=== PATIENT | male | born 1955 | race Caucasian/White ===

== ENCOUNTER 2017-03-24 18:04 | Emergency (ER) | payer OTHER ==
[2017-03-24 18:12] VITALS: BP 144/74; BMI 24.9
[2017-03-24 18:57] LABS: BILIRUBIN,URINE NEGATIVE (NEGATIVE); BLOOD/HEMOGLOBIN,URINE NEGATIVE (NEGATIVE); GLUCOSE, URINE NEGATIVE (NEGATIVE); KETONES,URINE NEGATIVE (NEGATIVE); LEUKOCYTE ESTERASE ,URINE NEGATIVE (NEGATIVE); NITRITES,URINE NEGATIVE (NEGATIVE); PROTEIN,URINE NEGATIVE (NEGATIVE); UROBILINOGEN,URINE NORMAL (NORMAL)
[2017-03-24 19:05] LABS: APPEARANCE,URINE CLEAR (CLEAR); BACTERIA,URINE NEGATIVE /HPF (NEGATIVE); COLOR,URINE PALE YELLOW (YELLOW); RBC,URINE 0-3 /HPF (NEGATIVE); SQUAMOUS EPITHELIAL CELL,UR RARE /HPF (NEGATIVE)
--- NOTE | 2017-03-24 19:19 | DR.UPM ---
HPI - Time Seen Time seen: 17:11 - PCP Primary Care Physician: nfd - Complaint Chief Complaint Doctors Comments: Patient admits to a history of kidney stones. Chief Complaint:: Patient states "I have been having problems urinating for the past three days. It hard to get started and it is very painful once I actually start urinating." Denies any hematuria - Source History Provided: Patient - Mode of Arrival Mode of Arrival: Ambulatory - Timing Onset of Chief Complaint: 03/20/17 PMH - PMH Past Medical History: Yes Past Medical History: Kidney Stones Past Surgical History: Yes Surgical History: Appendectomy Past Surgical History Comment: hip surgery x4, shoulder surgery, eye surgery - Family History History of Family Medical Conditions: Yes Family Medical History: Diabetes Mellitus, [place], Heart Failure, Hypertension - Social History Does patient currently use any type of tobacco product: Yes Have you used tobacco products in the last 12 months: Yes Type of Tobacco Use: Cigarettes How many years tobacco product used: 50 Does any household member use tobacco: No Alcohol Use: None Do you use any recreational Drugs:: No Lives With: Family Lives Where: Home - infectious screening In the last 2 months have you had wt loss of >10#?: NO Have you had fever, night sweats or hemotysis?: No Have you traveled outside the country in the last 6 months?: No Isolation: Standard ROS - Review of Systems Eyes: No Symptoms Reported ENTM: No Symptoms Reported Respiratoy: No Symptoms Reported Cardiovascular: No Symptoms Reported Gastrointestinal/Abdominal: No Symptoms Reported Genitourinary: No Symptoms Reported Neurological: No Symptoms Reported Musculoskeletal: No Symptoms Reported Integumentary: No Symptoms Reported Hematologic/Lymphatic: No Symptoms Reported Endocrine: No Symptoms Reported Psychiatric: No Symptoms Reported All Other Systems: Reviewed and Negative PE - Vital Signs Vitals: Pulse Rate 87 Respiratory Rate 18 Blood Pressure 144/74 O2 Sat by Pulse Oximetry 99 - General Limitations: No Limitations General Appearance: Alert, In No Apparent Distress - Head Head Exam: Normal Inspection, Atraumatic - Eyes Eye exam: Normal Appearance, PERRL, EOMI - ENT ENT Exam: Normal Exam - Neck Neck Exam: Normal Inspection, Full ROM - Chest Chest Inspection: Normal Inspection, Symmetric Chest Wall Rise - Respiratory Respiratory Exam: Normal Lung Sounds Bilat Respiratory Exam: Bilateral Clear to Auscultation - Cardiovascular Cardiovascular Exam: Regular Rate, Normal Rhythm - Abdominal Exam Abdominal Exam: Normal Inspection, Normal Bowel Sounds Abdominal Tenderness: negative: RUQ, RLQ, LUQ, LLQ, Epigastrium, Suprapubic, Diffuse, Mild, Moderate, Severe, Other - Rectal Rectal Exam: Deferred - Genitourinary Exam: Male: Normal Inspection Scrotal Exam: Normal: Bilateral - Extremities Extremities Exam: Normal Inspection, Full ROM - Back Back Exam: Normal Inspection - Neurologic Neurological Exam: Alert, Oriented X3, CN II-XII Intact - Psychiatric Psychiatric Exam: Normal Affect - Skin Skin Exam: Warm, Dry, Intact ROR - Labs Reviewed Result Diagrams: 03/24/17 19:52 03/24/17 19:52 Laboratory: WBC 9.4 X10^3/uL (3.6-10.0) 03/24/17 19:52 RBC 5.32 X10^6/uL (4.7-6.0) 03/24/17 19:52 Hgb 15.4 g/dL (13.5-18.0) 03/24/17 19:52 Hct 44.8 % (42.0-54.0) 03/24/17 19:52 MCV 84.3 fL (80.0-100.0) 03/24/17 19:52 MCH 28.9 pg (27.0-34.0) 03/24/17 19:52 MCHC 34.3 g/dL (33.0-35.0) 03/24/17 19:52 RDW 13.8 % (11.6-16.5) 03/24/17 19:52 Plt Count 250 X10^3/uL (150.0-450.0) 03/24/17 19:52 MPV 7.6 fL (7.4-11.0) 03/24/17 19:52 Neut % 61.1 % (42.0-75.0) 03/24/17 19:52 Lymph % 30.0 % (21.0-51.0) 03/24/17 19:52 Mathews % 6.1 % (0.0-13.0) 03/24/17 19:52 Eos % 1.7 % (0.9-2.9) 03/24/17 19:52 Baso % 1.1 % (0.2-1.0) H 03/24/17 19:52 Neut # 5.7 x10^3/uL (2.2-4.8) H 03/24/17 19:52 Lymph # 2.8 X10^3/uL (1.3-2.9) 03/24/17 19:52 Mathews # 0.6 x10^3/uL (0.3-0.8) 03/24/17 19:52 Eos # 0.2 x10^3/uL (0.0-0.2) 03/24/17 19:52 Baso # 0.1 X10^3/uL (0.0-0.1) 03/24/17 19:52 Absolute Nucleated RBC 0.0 /100WBC 03/24/17 19:52 Sodium 143 mmol/L (136-145) 03/24/17 19:52 Corrected Sodium TNP 03/24/17 19:52 Potassium 3.7 mmol/L (3.5-5.1) 03/24/17 19:52 Chloride 109 mmol/L (98-107) H 03/24/17 19:52 Carbon Dioxide 28.1 mmol/L (21-32) 03/24/17 19:52 BUN 8 mg/dL (7-18) 03/24/17 19:52 Creatinine 0.97 mg/dL (0.70-1.30) 03/24/17 19:52 Est GFR (MDRD) Af Amer > 60 (>60) 03/24/17 19:52 Est GFR (MDRD) Non-Af > 60 (>60) 03/24/17 19:52 Glucose 90 mg/dL (65-99) 03/24/17 19:52 Calcium 9.0 mg/dL (8.5-10.1) 03/24/17 19:52 Corrected Calcium TNP 03/24/17 19:52 Total Bilirubin 0.50 mg/dL (0.2-1.0) 03/24/17 19:52 AST 15 Units/L (15-37) 03/24/17 19:52 ALT 24 Units/L (12-78) 03/24/17 19:52 Alkaline Phosphatase 92 Units/L (46-116) 03/24/17 19:52 C-Reactive Protein 1.20 mg/L (0-3.0) 03/24/17 19:52 Total Protein 7.0 g/dL (6.4-8.2) 03/24/17 19:52 Albumin 3.6 g/dL (3.4-5.0) 03/24/17 19:52 Globulin 3.4 g/dL (2.5-4.5) 03/24/17 19:52 Albumin/Globulin Ratio 1.1 Ratio (1.1-2.1) 03/24/17 19:52 Specimen Type Random urine 03/24/17 18:45 Urine Color Pale yellow (YELLOW) 03/24/17 18:45 Urine Appearance Clear (CLEAR) 03/24/17 18:45 Urine pH 7.0 (5.0 - 8.0) 03/24/17 18:45 Ur Specific Pinole 1.010 (1.000-1.030) 03/24/17 18:45 Urine Protein Negative (NEGATIVE) 03/24/17 18:45 Urine Glucose (UA) Negative (NEGATIVE) 03/24/17 18:45 Urine Ketones Negative (NEGATIVE) 03/24/17 18:45 Urine Occult Blood Negative (NEGATIVE) 03/24/17 18:45 Urine Nitrite Negative (NEGATIVE) 03/24/17 18:45 Urine Bilirubin Negative (NEGATIVE) 03/24/17 18:45 Urine Urobilinogen Normal (NORMAL) 03/24/17 18:45 Ur Leukocyte Esterase Negative (NEGATIVE) 03/24/17 18:45 Urine RBC 0-3 /HPF (NEGATIVE) 03/24/17 18:45 Urine WBC 0-3 /HPF (NEGATIVE) 03/24/17 18:45 Ur Squamous Epith Cells Rare /HPF (NEGATIVE) 03/24/17 18:45 Urine Bacteria Negative /HPF (NEGATIVE) 03/24/17 18:45 Ur Culture Indicated? No/not indicated 03/24/17 18:45 - XRAY XRAY Interpreted by: Radiologist (CT Abd/Pel: There is grade 1 anterolisthesis of L5 on S1. The vascular structures are within normal limits for age. No pathologically enlarged lymph nodes are identified. There is evidence of removed hardware in the right hip. There is diffuse thickening of the urinary bladder wall. Prostate is mildly enlarged.) - Diagnosis Discharge Problem: Prostate hypertrophy, chronic bladder outlet obstruction - Discharge Plan Condition: Stable - Follow ups/Referrals Follow ups/Referrals: NFD,None [Primary Care Provider] - 3 days - Instructions
[2017-03-24 20:12] LABS: BASOPHILS # (AUTO) 0.1 X10^3/uL (0.0-0.1); BASOPHILS % (AUTO) 1.1 % (0.2-1.0); EOSINOPHILS # (AUTO) 0.2 x10^3/uL (0.0-0.2); EOSINOPHILS % (AUTO) 1.7 % (0.9-2.9); HEMATOCRIT 44.8 % (42.0-54.0); HEMOGLOBIN 15.4 g/dL (13.5-18.0); LYMPHOCYTES # (AUTO) 2.8 X10^3/uL (1.3-2.9); MEAN CORPUSCULAR HEMOGLOBIN 28.9 pg (27.0-34.0); MEAN CORPUSCULAR HGB CONC 34.3 g/dL (33.0-35.0); MEAN CORPUSCULAR VOLUME 84.3 fL (80.0-100.0); MEAN PLATELET VOLUME 7.6 fL (7.4-11.0); MONOCYTES # (AUTO) 0.6 x10^3/uL (0.3-0.8); MONOCYTES % (AUTO) 6.1 % (0.0-13.0); NEUTROPHILS # (AUTO) 5.7 x10^3/uL (2.2-4.8); NEUTROPHILS % (AUTO) 61.1 % (42.0-75.0); PLATELET COUNT 250 X10^3/uL (150.0-450.0); RED BLOOD COUNT 5.32 X10^6/uL (4.7-6.0); RED CELL DISTRIBUTION WIDTH 13.8 % (11.6-16.5); WHITE BLOOD COUNT 9.4 X10^3/uL (3.6-10.0)
[2017-03-24 20:14] LABS: ALANINE AMINOTRANSFERASE 24 Units/L (12-78); ALBUMIN 3.6 g/dL (3.4-5.0); ALKALINE PHOSPHATASE 92 Units/L (46-116); ASPARTATE AMINO TRANSFERASE 15 Units/L (15-37); BLOOD UREA NITROGEN 8 mg/dL (7-18); CARBON DIOXIDE 28.1 mmol/L (21-32); CHLORIDE 109 mmol/L (98-107); CREATININE 0.97 mg/dL (0.70-1.30); SODIUM 143 mmol/L (136-145); eGFR BLACK RACES > 60 (>60); eGFR NON BLACK RACES > 60 (>60)
[2017-03-24] MEDS ORDERED: DEMEROL INJ IVP ONE (20:56)
[2017-03-24] MEDS ORDERED: PHENERGAN INJ 25 MG IV ONE (20:56)
[2017-03-24] MEDS ORDERED: NS 100 ML IV 100 ML IV ONE (21:03)
[2017-03-24] MEDS ORDERED: PHENERGAN INJ 25 MG ONE (21:11)
[2017-03-24] MEDS ORDERED: DEMEROL INJ ONE (21:12)
--- NOTE | 2017-03-24 22:04 | CT ---
HISTORY: Weakness, generalized pain Study: CT abdomen and pelvis with contrast Comparison: none Technique: Multiple axial images of the abdomen and pelvis were obtained with IV contrast. Oral contrast was no t administered. Dose reduction techniques including Automated Exposure Control (AEC) and adjustment o f mA and kV were utilized. Findings: The visualized portions of the lung bases are unremarkable. The liver, spleen, pancreas, kidneys, an d adrenal glands are unremarkable in their CT appearance. The gallbladder is normal. There is early e xcretion of contrast limiting evaluation renal calculi. No free intraperitoneal air. No evidence of intestinal obstruction or inflammation. The appendix is n ot visualized. No free fluid is seen. There is diffuse thickening of the urinary bladder wall. Prosta te is mildly enlarged. There is grade 1 anterolisthesis of L5 on S1. The vascular structures are within normal limits for ag e. No pathologically enlarged lymph nodes are identified. There is evidence of removed hardware in th e right hip. IMPRESSION: 1. Diffuse thickened urinary bladder wall. The prostate is mildly enlarged. The findings could be rel ated to chronic bladder outlet obstruction versus cystitis, correlate clinically. Reported By:
== END 2017-03-24 22:25 | disposition home or self-care (01) ==
LOC: ER 18:36
DX: N40.0 Benign prostatic hyperplasia without lower urinary tract symptoms (principal); N32.0 Bladder-neck obstruction
CPT/HCPCS: 36415; 74177; 80053; 81001; 85025; 86140; 96365; 96374; 96375; 99283; A4222; J2175; J2550

== ENCOUNTER → 2017-04-19 | Outpatient (CLI) | payer OTHER ==
[2017-03-24 18:12] VITALS: BP 144/74
--- NOTE | 2017-04-20 13:18 | MRI ---
STUDY: MRI OF THE CERVICAL SPINE HISTORY: Cervical disc degeneration. Comparison: None. Technique: An MRI of the cervical spine including sagittal T1, T2, and T2 STIR, axial T1, and T2 FSE images was performed using standard departmental protocol. Findings: Sagittal images: Visualized portions of the posterior fossa are within normal limits. The craniocervical junction is unremarkable. Vertebral body heights and alignment are within normal limits. Marrow signal is somewha t heterogeneous. There are Modic type 2 changes in the posterior aspect of the opposing endplates of C3 and C4. Additional Modic type 2 changes noted in C5, C6, and C7. There is focal fat in C2 on the l eft. There is multilevel degenerative disc disease. There is no significant prevertebral soft tissue swell ing. The surrounding paraspinal soft tissues are unremarkable. There is no evidence of cord compress ion. No intrinsic signal abnormalities are identified in the spinal cord itself. Axial images: C2 -- C3: Normal. C3 -- C4: There is posterior disc osteophyte complex and bilateral uncovertebral osteophyte formation . The combination of these findings results in mild central canal stenosis. There is mild left neural foraminal stenosis. The right neural foramen is adequate. C4 -- C5: There is a posterior disc osteophyte complex and bilateral uncovertebral osteophyte formati on. This results in mild central canal stenosis. The neural foramina are adequate. C5 -- C6: There is a posterior disc osteophyte complex and bilateral uncovertebral osteophyte formati on. This results in moderate central canal stenosis. The neural foramina are adequate. C6 -- C7: There is a posterior disc osteophyte complex and bilateral uncovertebral osteophyte formati on. This results in mild central canal stenosis. The neural foramina are adequate. C7 -- T1: Normal. IMPRESSION: 1. Multilevel cervical spondylosis as described, probably most prominent at C5/6. 2. Moderate spinal stenosis at C5/6. 3. Mild spinal stenosis at C3/4, C4/5 and C6/7. Reported By:
== END | disposition home or self-care (01) | DRG 552 ==
LOC: RAD 13:09
PROVIDERS: ATTEND Nurse Practitioner Family
DX: M50.30 Other cervical disc degeneration, unspecified cervical region (principal); M47.892 Other spondylosis, cervical region; M48.02 Spinal stenosis, cervical region
CPT/HCPCS: 72141

== ENCOUNTER → 2017-05-18 | Outpatient (CLI) | payer OTHER ==
--- NOTE | 2017-05-19 09:11 | MRI ---
HISTORY: Disc degeneration, chronic low back pain Study: MRI lumbar spine without contrast Comparison: None Technique: Multiplanar multi-sequence MRI of the lumbar spine was obtained. Sagittal T1, sagittal T2 , and stir weighted images, axial T1, and axial T2 images were obtained. Findings: There is grade 1 anterolisthesis of L5 on S1. Lumbar alignment is otherwise within normal limits No a bnormal cord or marrow signal identified. The conus of the cord terminates normally. The surroundin g soft tissues are within normal limits. Vertebral body heights are preserved. There is multilevel sp ondylosis and disc desiccation present throughout the lumbar spine. T12 -- L1: Moderate facet hypertrophy changes and asymmetric disc bulge to the right resulting in mil d right foraminal narrowing. L1 -- L2: Moderate facet hypertrophy changes with disc height loss and desiccation. No significant st enosis identified. L2 -- L3: Moderate facet hypertrophy changes and mild broad-based disc bulge asymmetric to the right without significant stenosis. L3 -- L4: Moderate facet degenerative changes and a broad-based disc bulge are noted as well as a sma ll central disc protrusion slightly asymmetric to the left causing effacement of the ventral thecal s ac. There is mild bilateral foraminal narrowing. L4 -- L5: Broad-based disc bulge and spondylitic changes with mild to moderate facet degeneration res ulting in mild bilateral foraminal narrowing. L5 -- S1: [id number] facet arthropathy resulting in grade 1 anterolisthesis of L5 on S1 and m ild to moderate foraminal narrowing, worse on the right. IMPRESSION: Multilevel degenerative disc disease and facet arthropathy as detailed above. Small central disc prot rusion is seen at L3-L4 causing effacement of the thecal sac without definite nerve encroachment. Reported By:
== END ==
LOC: RAD 09:33
PROVIDERS: ATTEND Internal Medicine
DX: M51.36 Other intervertebral disc degeneration, lumbar region (principal)
CPT/HCPCS: 72148

== ENCOUNTER → 2017-07-20 | Outpatient (CLI) | payer OTHER | LOC: RT 10:47 | PROVIDERS: ATTEND Internal Medicine | DX: R07.89 Other chest pain (principal) | CPT/HCPCS: 93005; 93010 ==

== ENCOUNTER 2018-04-11 14:38 | Observation (INO) ==
[2018-04-11] MEDS ORDERED: ZOFRAN INJ 4 MG VIAL IVP PRN (16:46)
[2018-04-11] MEDS ORDERED: PHARMACY CONSULT - DOSE _____ XX SCH (17:00)
--- NOTE | 2018-04-11 17:11 | DR.H&P ---
H&P - History & Physical for Day of: H&P Date: 04/11/18 - Chief Complaint Chief Complaint: FEVER, RIGHT FLANK PAIN, RIGHT LOWER ABDOMINAL PAIN, NAUSEA - History of Present Illness History of Present Illness: 62 WM DIRECT ADMIT FROM DR ELIZABETH OFFICE WITH CO RIGHT LOWER ABDOMINAL PAIN, RIGHT FLANK PAIN WITH DECREASED URINE OUTPUT. PT WAS SEEN IN ER OVER THE WEEKEND HAD CT ABD PELVIS WITH COLITIS AND NON OBSTRUCTING RENAL CALCULI. PT CO INCREASED PAIN, CANNOT LAY ON RIGHT SIDE AND FOOD INTOLERANCE WITH N/V. PT STATES HE HAD LABS IN ER AND CHEST XRAY. PT HAS PMH OF CHRONIC C AND L SPINE DDD, RENAL STONES, HTN. PT ADMITTED FOR TREATMENT OF ACUTE ILLNESS - Past Medical History Past Medical History: Anxiety, Arthritis, Hypertension, Kidney Stones - Past Surgical History Surgical History: Appendectomy, Ortho Surgery - Family History Family Medical History: Diabetes Mellitus, [place], Heart Failure, Hypertension - Social History Does patient currently use any type of tobacco product: Yes Have you used tobacco products in the last 12 months: Yes Type of Tobacco Use: Cigarettes Does any household member use tobacco: Yes Alcohol Use: None Drug Use: None - Medications Home Medications: No Known Drug Allergies Allergy (Verified 03/24/17 18:12) - Review of Systems Constitutional: Fever, Chills, Malaise Eyes: Other ENT: No Symptoms Reported Respiratory: Cough Cardiovascular: No Symptoms Reported Gastrointestinal: No Symptoms Reported Genitourinary: No Symptoms Reported Musculoskeletal: Back Pain, Neck Pain Skin: No Symptoms Reported Neurological: Weakness - Physical Exam Vital Signs: Blood Pressure [Left Arm] 150/68 Blood Pressure 150/68 Oriented: Normal Eyes: Normal Ear: Normal Nose: Normal Throat: Normal Respiratory: Rhonchi Throughout, RLL Diminished, LLL Diminished Cardiovascular: Normal : Normal Auscultation: Bowel Sounds: Normal Palpation: Normal Tenderness: RLQ Skin: Decreased Turgur Musculoskeletal: Right, Back:Thoracic, Tender Psychiatric: Anxiety Mood Description: Anxious Affect: Anxious Speech Pattern: Clear, Appropriate - Assessment/Plan (1) Abdominal pain Qualifiers: Abdominal location: generalized Qualified Code(s): R10.84 - Generalized abdominal pain Status: Acute Plan: ADMIT, ADMISSION LABS CBC CMP UA PSA. CT/ ABD PELVIS WITH CONTRAST, IV HYDRATION, IV ABTX CIPRO AND FLAGYL. VERIFY HOME MEDICATION, BP CONTROL, AM LABS. PPI THERAPY AND NAUSEA CONTROL (2) Fever Status: Acute (3) Colitis Status: Acute (4) BPH with obstruction/lower urinary tract symptoms Status: Acute - Allergies Allergies/Adverse Reactions: Allergies Allergy/AdvReac Type Severity Reaction Status Date / Time No Known Drug Allergies Allergy Verified 03/24/17 18:12
[2018-04-11] MEDS: FLAGYL IV PREMIX 500 MG BAG 500 MG/100 ML BAG IV SCH ×2 (17:33→21:10)
[2018-04-11] MEDS: NS 1000 ML 1,000 ML IV SCH (17:33)
[2018-04-11] MEDS: CIPRO IV 400 MG PREMIX* 400 MG/200 ML IV.SOLN. IV SCH ×2 (17:33→21:09)
[2018-04-11] MEDS: PROTONIX INJ 40 MG VIAL IVP SCH (17:35)
[2018-04-11 17:40] LABS: BASOPHILS % (AUTO) 0.3 % (0.2-1.0); EOSINOPHILS # (AUTO) 0.1 x10^3/uL (0.0-0.2); EOSINOPHILS % (AUTO) 0.6 % (0.9-2.9); HEMATOCRIT 53.2 % (42.0-54.0); HEMOGLOBIN 18.3 g/dL (13.5-18.0); LYMPHOCYTES # (AUTO) 1.6 X10^3/uL (1.3-2.9); LYMPHOCYTES % (AUTO) 14.5 % (21.0-51.0); MEAN CORPUSCULAR HEMOGLOBIN 29.8 pg (27.0-34.0); MEAN CORPUSCULAR HGB CONC 34.5 g/dL (33.0-35.0); MEAN CORPUSCULAR VOLUME 86.2 fL (80.0-100.0); MEAN PLATELET VOLUME 7.5 fL (7.4-11.0); MONOCYTES # (AUTO) 0.6 x10^3/uL (0.3-0.8); MONOCYTES % (AUTO) 5.1 % (0.0-13.0); NEUTROPHILS # (AUTO) 8.7 x10^3/uL (2.2-4.8); NEUTROPHILS % (AUTO) 79.5 % (42.0-75.0); PLATELET COUNT 183 X10^3/uL (150.0-450.0); RED BLOOD COUNT 6.17 X10^6/uL (4.7-6.0); RED CELL DISTRIBUTION WIDTH 16.4 % (11.6-16.5); WHITE BLOOD COUNT 10.9 X10^3/uL (3.6-10.0)
[2018-04-11] MEDS ORDERED: LIORESAL PO PRN (17:40)
[2018-04-11] MEDS: MORPHINE SULFATE INJ 2 MG INJ IVP PRN ×2 (17:44→22:09)
[2018-04-11] MEDS: XANAX PO PRN (17:45)
[2018-04-11 17:52] LABS: ALANINE AMINOTRANSFERASE 41 Units/L (12-78); ALBUMIN 3.9 g/dL (3.4-5.0); ALKALINE PHOSPHATASE 91 Units/L (46-116); ASPARTATE AMINO TRANSFERASE 16 Units/L (15-37); BLOOD UREA NITROGEN 11 mg/dL (7-18); CALCIUM 8.9 mg/dL (8.5-10.1); CARBON DIOXIDE 26.3 mmol/L (21-32); CHLORIDE 105 mmol/L (98-107); COR NA(FOR HYPERGLY) 140 mmol/L (136-145); CREATININE 1.03 mg/dL (0.70-1.30); SODIUM 139 mmol/L (136-145); TOTAL PROTEIN 7.5 g/dL (6.4-8.2); eGFR NON BLACK RACES > 60 (>60)
[2018-04-11 18:04] LABS: TOTAL PSA 4.27 ng/mL (0.13-4.0)
[2018-04-11 18:26] LABS: ERYTHROCYTE SEDIMENTATION RATE 1 MM/HOUR (0-15)
[2018-04-11 18:31] LABS: BILIRUBIN,URINE NEGATIVE (NEGATIVE); BLOOD/HEMOGLOBIN,URINE NEGATIVE (NEGATIVE); GLUCOSE, URINE NEGATIVE (NEGATIVE); KETONES,URINE NEGATIVE (NEGATIVE); LEUKOCYTE ESTERASE ,URINE NEGATIVE (NEGATIVE); NITRITES,URINE NEGATIVE (NEGATIVE); PROTEIN,URINE NEGATIVE (NEGATIVE); UROBILINOGEN,URINE NORMAL (NORMAL)
[2018-04-11 18:34] VITALS: BMI 25.2
[2018-04-11 18:34] LABS: APPEARANCE,URINE CLEAR (CLEAR); COLOR,URINE YELLOW (YELLOW)
[2018-04-11] MEDS ORDERED: NS 500 ML IV 500 ML IV ONE (18:53)
[2018-04-11] MEDS: PERCOCET TAB 5/325 MG PO PRN (19:08)
[2018-04-11] MEDS: NEURONTIN CAP 400 MG PO SCH (20:10)
--- NOTE | 2018-04-11 20:35 | CT ---
HISTORY: Abdominal pain, colitis Study: CT abdomen and pelvis with contrast Comparison: 04/09/2018 Technique: Multiple axial images of the abdomen and pelvis were obtained from the lung bases to the pubic symphysis after the administration of IV contrast. Findings: The visualized portions of the lung bases are unremarkable. The liver, spleen, pancreas, and adrenal glands are unremarkable in their CT appearance. There are multiple small nonobstructing caliceal stones within the bilateral kidneys. There is no hydronephrosis. A small renal cyst is noted within the mid to inferior pole of the left kidney. The gallbladder is unremarkable in its CT appearance. Incidental note is made of a duodenal diverticulum. There appears to be short segment wall thickening involving the proximal sigmoid colon, a finding which can be seen in the setting of infectious versus inflammatory colitis. No significant surrounding inflammatory changes are appreciated. There is no free fluid or extraluminal free air within the abdomen or pelvis. No pathologic lymphadenopathy is identified. There is no evidence of acute appendicitis. The prostate gland is enlarged in size with mass effect upon the posterior wall of the urinary bladder. Correlation with PSA values is recommended. 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 There are postsurgical changes of the proximal right femur as well. There is grade 1 anterolisthesis of L5 on S1 secondary to bilateral L5 spondylolysis. IMPRESSION: 1. Short segment wall thickening involving the proximal sigmoid colon, possibly reflecting an infectious versus inflammatory colitis. 2. Enlarged prostate gland with mass effect upon the posterior wall of the urinary bladder. Correlation with PSA values is recommended. 3. Nonobstructive bilateral nephrolithiasis. Please see above discussion regarding other incidental findings. Reported By:
[2018-04-11] MEDS ORDERED: FLOMAX PO SCH (21:00)
[2018-04-12] MEDS: MORPHINE SULFATE INJ 2 MG INJ IVP PRN ×2 (03:09→07:12)
[2018-04-12] MEDS: FLAGYL IV PREMIX 500 MG BAG 500 MG/100 ML BAG IV SCH ×3 (03:10→08:23)
[2018-04-12] MEDS: PERCOCET TAB 5/325 MG PO PRN ×2 (04:26→10:28)
[2018-04-12] MEDS: NS 1000 ML 1,000 ML IV SCH (06:06)
[2018-04-12 06:39] LABS: BASOPHILS % (AUTO) 0.5 % (0.2-1.0); EOSINOPHILS # (AUTO) 0.2 x10^3/uL (0.0-0.2); EOSINOPHILS % (AUTO) 2.2 % (0.9-2.9); HEMATOCRIT 49.3 % (42.0-54.0); HEMOGLOBIN 16.9 g/dL (13.5-18.0); LYMPHOCYTES % (AUTO) 25.2 % (21.0-51.0); MEAN CORPUSCULAR HEMOGLOBIN 29.7 pg (27.0-34.0); MEAN CORPUSCULAR HGB CONC 34.3 g/dL (33.0-35.0); MEAN CORPUSCULAR VOLUME 86.6 fL (80.0-100.0); MEAN PLATELET VOLUME 7.8 fL (7.4-11.0); MONOCYTES # (AUTO) 0.5 x10^3/uL (0.3-0.8); NEUTROPHILS # (AUTO) 5.2 x10^3/uL (2.2-4.8); NEUTROPHILS % (AUTO) 66.1 % (42.0-75.0); PLATELET COUNT 161 X10^3/uL (150.0-450.0); RED CELL DISTRIBUTION WIDTH 16.2 % (11.6-16.5); WHITE BLOOD COUNT 7.9 X10^3/uL (3.6-10.0)
[2018-04-12 06:52] LABS: ALANINE AMINOTRANSFERASE 33 Units/L (12-78); ALBUMIN 3.2 g/dL (3.4-5.0); ALKALINE PHOSPHATASE 75 Units/L (46-116); ASPARTATE AMINO TRANSFERASE 17 Units/L (15-37); BLOOD UREA NITROGEN 12 mg/dL (7-18); CALCIUM 8.2 mg/dL (8.5-10.1); CARBON DIOXIDE 24.9 mmol/L (21-32); CHLORIDE 106 mmol/L (98-107); COR CA(FOR HYPOALB) 8.8 mg/dL (8.5-10.1); CREATININE 0.92 mg/dL (0.70-1.30); SODIUM 139 mmol/L (136-145); TOTAL PROTEIN 6.4 g/dL (6.4-8.2); eGFR NON BLACK RACES > 60 (>60)
[2018-04-12] MEDS: XANAX PO PRN (07:13)
[2018-04-12] MEDS: NEURONTIN CAP 400 MG PO SCH ×2 (07:14→08:23)
[2018-04-12] MEDS: CIPRO IV 400 MG PREMIX* 400 MG/200 ML IV.SOLN. IV SCH ×2 (07:15→08:23)
[2018-04-12] MEDS: PROTONIX INJ 40 MG VIAL IVP SCH ×2 (07:15→08:23)
[2018-04-12] MEDS ORDERED: MORPHINE SULFATE INJ 2 MG INJ IVP ONE (08:37)
[2018-04-12] MEDS ORDERED: SOLU-Medrol 40 MG VIAL IVP ONE (08:57)
[2018-04-12] MEDS ORDERED: MILK OF MAGNESIA PO SCH (09:00)
[2018-04-12] MEDS ORDERED: MORPHINE SULFATE INJ 2 MG INJ IM ONE (11:10)
[2018-04-12 12:47] VITALS: BP 145/71
[2018-04-12] MEDS ORDERED: NEURONTIN CAP 400 MG PO SCH (13:00)
[2018-04-12] MEDS: MILK OF MAGNESIA PO SCH ×2 (13:35→13:40)
[2018-04-12] MEDS ORDERED: ZOFRAN INJ 4 MG VIAL IVP PRN (13:54)
[2018-04-12] MEDS ORDERED: LIORESAL PO PRN (13:54)
[2018-04-12] MEDS ORDERED: MORPHINE SULFATE INJ 2 MG INJ IVP PRN (13:54)
[2018-04-12] MEDS ORDERED: PERCOCET TAB 5/325 MG PO PRN (13:55)
[2018-04-12] MEDS ORDERED: XANAX PO PRN (13:55)
[2018-04-12] MEDS ORDERED: FLAGYL IV PREMIX 500 MG BAG 500 MG/100 ML BAG IV SCH (15:00)
[2018-04-12] MEDS ORDERED: NS 1000 ML 1,000 ML IV SCH (21:00)
[2018-04-12] MEDS ORDERED: CIPRO IV 400 MG PREMIX* 400 MG/200 ML IV.SOLN. IV SCH (21:00)
[2018-04-12] MEDS ORDERED: FLOMAX PO SCH (21:00)
[2018-04-13] MEDS ORDERED: PROTONIX INJ 40 MG VIAL IVP SCH (09:00)
== END 2018-04-12 13:50 | disposition home or self-care (01) ==
LOC: MED/SURG
PROVIDERS: ADMIT Internal Medicine; ATTEND Internal Medicine
CPT/HCPCS: 36415; 74177; 80053; 81003; 84153; 85025; 85652; 86140; 87040; 87086; 96367; 96374; A4222; C9113; S0030; G0378; J0744; J2270; J2405; J2920; J7030; J7040